=== PATIENT | male | born 1970 | race Caucasian/White ===

== ENCOUNTER 2021-06-30 17:07 | Emergency (ER) | payer BC, SELFPAY ==
[2021-06-30 17:20] VITALS: BP 131/86; PULSE 92; RESP 18; TEMP 36.4; O2SAT 98
--- NOTE | 2021-06-30 17:27 | ED_ITS ---
HPI - URI/Sore Throat General Chief Complaint: Upper Respiratory Infection Stated Complaint: Sore throat,Cough,Runny Nose Source: patient and RN notes reviewed History of Present Illness HPI Narrative: This is a 50-year-old male that presented to urgent care with c omplaints of a sore throat and cough. 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 The patient denies SOB, CP, palpitation, extremity numbness, lightheadedness, dizziness, constipation, diarrhea, chills, headache, loss of smell or taste or fever. Rapid Covid negative Strep negative Covid send out pending MD elicited complaint: cough and sore throat Related Data Allergies Allergy/AdvReac Type Severity Reaction Status Date / Time No Known Allergies Allergy Mild Verified 03/02/13 14:53 Review of Systems Review of Systems: A 14 organ system Review of Systems was performed and pertinent positives included in the HPI, otherwise remaining ROS is negative. Exam Narrative: GENERAL: This is a well-nourished, well-developed patient, in no apparent distress. HEAD: normocephalic, atraumatic. EYES: PERRL. Sclera clear/white. Vision is grossly intact. EARS: External ears normal, auditory canals clear and without drainage, TMs normal without perforation. Hearing grossly intact. NOSE: External nose normal with no obvious nasal discharge, nares without redness, no rhinorrhea. THROAT: Mucous membranes moist, posterior pharynx clear. NECK: Neck supple, non-tender without lymphadenopathy, masses or thyromegaly. CARDIOVASCULAR: Regular rate and rhythm without murmurs, gallops, or rubs. RESPIRATORY: Clear to auscultation. Breath sounds equal bilaterally. No wheezes, rales, or rhonchi. GASTROINTESTINAL: Abdomen soft, non-tender, nondistended. Bowel sounds are active. No hepato-splenomegaly, or palpable masses. No guarding. SKIN: warm, intact with no suspicious lesions or rash, good texture and turgor. NEURO: awake, alert, and oriented to person, place and time. There were no obvious focal neurologic abnormalities. Steady gait EXTREMITIES: Normal range of motion. No edema. No calf tenderness. Negative Homans sign bilaterally. BACK: Nontender without deformity or crepitance. No flank tenderness. Course Vital Signs Vital signs: Vital Signs Temperature 97.6 F 06/30/21 17:20 Pulse Rate 92 06/30/21 17:20 Respiratory Rate 18 06/30/21 17:20 Blood Pressure 131/86 06/30/21 17:20 Pulse Oximetry 98 06/30/21 17:20 Temperature 97.6 F 06/30/21 17:20 Pulse Rate 92 06/30/21 17:20 Respiratory Rate 18 06/30/21 17:20 Blood Pressure 131/86 06/30/21 17:20 Pulse Oximetry 98 06/30/21 17:20 Discharge Plan Discharge Patient Disposition: Home, Self-Care Condition: Stable Instructions: Antibiotic Form Follow-up/Referrals: Jorge Luis,Rajeev Rocha MD [Primary Care Provider] -
[2021-07-01 15:30] LABS: SARS-CoV-2 RNA PCR Negative
== END 2021-06-30 18:01 | disposition home or self-care (01) ==
PROVIDERS: Emergency Provider Nurse Practitioner; PCP Internal Medicine
DX: J00 Acute nasopharyngitis [common cold] (principal); Z20.822 Contact with and (suspected) exposure to COVID-19
CPT/HCPCS: 87081; 87880; 99213; C9803; G0463; U0003; U0005

== ENCOUNTER 2025-03-16 13:55 | Emergency (ER) | payer BC, SELFPAY ==
--- OUTSIDE RECORDS SUMMARY | 2025-03-16 13:58 | XMS_ITS | Encounter Summary ---
Author Organization [facility] Health Address [address] [place] [address] Care Team Providers Care Hockey Instructor Name Role Phone Ofe, Anibal BArsenio DO Unavailable [phone] Rajeev Kang MD Primary Care Provider [phone] Encounter Details Date Type Department Care Team (Late st Contact Info) Description 11/18/2022 Lab Requisition [facility] Care DermPath Lab [address] [facility] [place] [id number] Kasandra Hernandez MD [facility] [facility] [place] [address] Social History Tobacco Use Types Packs/Day Years Used Date Smoking Tobacco: Never Smokeless Tobacco: Never Alcohol Use Standard Drinks/Week Comments Yes 0 (1 standard drink = 0.6 oz pur e alcohol) OCCASSIONALLY 1 drinks a week Sex and Gender Information Value Date Recorded Sex Assigned at Not on file Legal Sex Male 5:42 AM GROUP HOME COUNSELOR Gender Identity Not on file Sexual Orientation Not on file documented as of this encounter Plan of Treatment Not on file documented as of this encounter Procedures Procedure Name Priority Date/Time Associated Diagnosis Comments DERMATOPATHOLOGY Routine 11/17/2022 12:0 0 AM GROUP HOME COUNSELOR documented in this encounter Results * DERMATOPATHOLOGY (11/17/2022 12:00 AM GROUP HOME COUNSELOR) Case Report Dermatopathology Report Case: [id number] Authorizing Provider: Kasandra Hernandez MD Collected: 11/17/2022 12:00 AM Ordering Location: [facility] DermPath Lab Received: 11/18/2022 04:42 PM Pathologist: Nadia Lyons MD Specimen: Skin, right superior lateral midback 4:28 PM [facility] DERMATOPATHOLOGY LABORATORY Final Diagnosis Specimen A. SKIN, right superior lateral midback: FOCAL RESIDUAL JUNCTIONAL MELANOCYTIC PROLIFERATION; NOT PRESENT AT MARGIN (D48.5) DERMAL SCAR (L90.5) 4:28 PM [facility] DERMATOPATHOLOGY LABORATORY Clinical History Dysplastic Nevus with Moderate Atypia 3 4:28 PM [facility] DERMATOPATHOLOGY LABORATORY Gross Description Specimen A: Received is one formalin filled container labeled with the patients name and designated right superior lateral midback. The specimen consists of a shave removal measuring [id number] mm. Jar 0. 4:28 PM [facility] DERMATOPATHOLOGY LABORATORY Microscopic Description Specimen A. SKIN, right superior lateral midback: Sections show focal residual junctional melanocytic proliferation. There is a lentiginous proliferation of melanocytes between irregular nests. The melanocytes are highlighted by MART-1/Melan-A.This lesion is not present at the margin of the specimen. There are fibroblasts and collagen bundles oriented parallel to the skin surface with elongated blood vessels, some of which are oriented perpendicular to the skin surface. 4:28 PM [facility] DERMATOPATHOLOGY LABORATORY Disclaimer An external and internal positive and negative controls are appropriate for the histochemical, immunohistochemical and immunofluorescence stain(s) in this case (if any), except where stated explicitly. The performance characteristics of the stain(s) cited in this report were developed and its performance characteristic determined by the Dermatopathology Laboratory at [facility], directed by Dr. Meka Fraser. These tests need not be, and therefore are not, approved by the [place] Food and Drug Administration. The tests are used for clinical purposes. Billing Codes Specimen Charges Stain Charges 53989 1 52447 1 4:28 PM [facility] DERMATOPATHOLOGY LABORATORY Embedded Images 4:28 PM GROUP HOME COUNSELOR DERMATOPATHOLOGY LABORATORY Pathology/Cytolog y TISSUE SPECIMEN FROM SKIN / Unknown 11/17/2022 11/18/2022 4:42 PM GROUP HOME COUNSELOR Kasandra Hernandez MD LAB - PATHOLOGY/CYTOLOGY ORDER MIRYAM Final Result DERMATOPATHOLOGY LABORATORY [facility] - Department of Dermatology [facility] [address] [place] [address], [address] [phone] documented in this encounter Visit Diagnoses Not on filedocumented in this encounter Care Teams Hockey Instructor Relationship Specialty Start Date End Date Rajeev Kang MD PCP - General Internal Medicine 06/15/13 Anibal Thakur DO Referring Physician Gastroenterology 06/15/13 documented as of this encounter
--- OUTSIDE RECORDS SUMMARY | 2025-03-16 13:58 | XMS_ITS | Continuity of Care Document ---
Author Organization [facility] Address [address] [place] [address] Phone Care Team Providers Care Lpn Private Duty Name Role Phone Emmanuel Mary MD Unavailable Unavailable Allergies, Adverse Reactions, Alerts Substance Reaction Status Criticality No Known Allergies Active No Inform ation Medications Medication Instructions Dosage Effective Dates (start - stop) Status Comments MESALAMINE DR TABS 800MG TAKE 2 TABLETS TWICE A DAY - Active AZATHIOPRINE TABS 50MG TAKE 4 TABLETS DAILY - Active RISEDRONATE SOD TABS 5MG TAKE 1 TABLET DAILY - Active Clenpiq 10 mg-3.5 gram-12 gram/175 mL oral solution first dose at 5 pm the evening prior second dose 6 hours before procedure - Active ACTONEL (unknown strength) take 1 tablet by oral route every week in the morning, at least 30 min before first food, beverage, or medication of day Not Available - Active loperamide 2 mg capsule one three times daily - Active vitamin B12 2,500 mcg-folic acid 400 mcg disintegrating tablet one sublingual daily - Active Fish Oil 1,200 mg (144 mg-216 mg) capsule one capsule daily - Active glipizide ER 5 mg tablet, extended release 24 hr take 1 tablet by oral route 2 times every day with breakfast 5 MG - Active Caltrate 600 plus D 600 mg (1,500 mg)-800 unit chewable tablet one tablet daily - Active Zyrtec 10 mg tablet take 1 tablet by oral route every day 10 MG - Active Multivitamin 50 Plus tablet one tablet daily - Active OneTouch Ultra Test strips use one strip three times daily - Active Farxiga 5 mg tablet take 1 tablet by oral route every day in the morning 5 MG - Active Procedures Procedure Date OFFICE [id number] BODY MASS INDEX DOCD SYST BP GE 130 - 139MM HG DIAST BP < 80 MM HG TISSUE EXAM BY PATHOLOGIST COLONOSCOPY, REMOVAL SNARE TECH 024 C-REACTIVE PROTEIN (CRP) CBC, INC PLATELETS AND DIFFERENTIAL COMPREHEN METABOLIC PANEL CMP ROUTINE VENIPUNCTURE OFFICE [id number] BODY MASS INDEX DOCD SYST BP LT 130 MM HG DIAST BP < 80 MM HG OFFICE [id number] BODY MASS INDEX DOCD SYST BP LT 130 MM HG DIAST BP < 80 MM HG OFFICE [id number] BODY MASS INDEX DOCD SYST BP >= 140 MM HG6 IT DIAST BP 80-89 MM HG OFFICE [id number] BODY MASS INDEX DOCD SYST BP LT 130 MM HG DIAST BP < 80 MM HG C-REACTIVE PROTEIN (CRP) CBC, INC PLATELETS AND DIFFERENTIAL COMPREHEN METABOLIC PANEL CMP ROUTINE VENIPUNCTURE Advance Directives Directive Yes / No Effective Date File Name No Information Encounters Encounter Description Practice Location Reason(s) For Visit Diagnoses Date Provider Providers Copied on Encounter OFFICE [id number] [employer], [address], [place], [place], [id number] , [place] tel:[phone] [facility] Crohn's disease (chief complaint) Crohn's disease of both small and large intestine without complicationOther osteoporosis without current pathological fracture 4 Bialecki Eldad. [address] [place] [address], [id number], [place]. tel:[phone] Referring Provider: Rajeev Kang, [address] [facility] [address], [place], [address]. tel:[phone] [facility], [address], [place], [place], [id number] , [place] tel: [phone] [facility] No Information 4 Karrie Mccormick. [address] [place] [address], [place], [place], [id number], [place]. tel:[phone] [employer], [address], [place], [place], [id number] , [place] tel: [phone] [facility] No Information 4 Laura Almazan. [address] [place] [address], [place], [place], [id number], [place]. tel:[phone] [employer], [address], [place], [place], [id number] , [place] tel: [phone] [facility] Crohn's disease of both small and large intestine without complication 4 Bialecki [place]. [address] [place] [address], [id number], [place]. tel:[phone] [employer], [address], [place], [place], [id number] , [place] tel: [phone] [facility] No Information 4 Bialecki [place]. [address] [place] [address], [id number], [place]. tel:[phone] Referring Provider: Rajeev Kang, [address] [facility] [address], [place], [address]. tel:[phone] [employer], [address], [place], [place], [id number] , [place] tel: [phone] [facility] No Information 4 Tyra Christinalyla. [address] [place] [address], [id number], [place]. tel:[phone] Referring Provider: Emmanuel Hernandez, [address] [place] [address], [address] . tel:[phone] OFFICE [id number]HBO[facility]WT [facility], [address], [place], [place], [id number] , [place] tel:[phone] [facility] Crohn's disease (chief complaint) Crohn's disease of both small and large intestine without complication 4 Daniel Ivanna. [address] [place] [address], [id number], [place]. tel:[phone] Referring Provider: Rajeev Kang, [facility] [address], [place], [address]. tel:[phone] OFFICE BNUHE-HCI-WB [facility], [address], [place], [place], [id number] , [place] tel:[phone] [facility] Crohn's disease (chief complaint) Crohn's disease of both small and large intestine without complication 3 Laura Almazan. [address] [place] [address], [id number], [place]. tel:[phone] Referring Provider: Rajeev Kang, [address], [place], [address]. tel:[phone] OFFICE [facility], [address], [place], [place], [id number] , [place] tel:[phone] [facility] Follow up crohn's (chief complaint) Crohn's disease of both small and large intestine without complicationOther osteoporosis without current pathological fracture 2 Ofe Barnett. [address] [place] [address], [id number], [place]. tel:[phone] Referring Provider: Rajeev Kang, [address] [facility] [address], [place], [address]. tel:[phone] [facility], [address], [place], [id number] , tel:[phone] [facility] No Information 1 Ofe Barnett. [address] [place] [address], [id number], . tel:[phone] OFFICE FWSLD-VYR-DA PANDED [employer], [address], [place], [id number] , tel:[phone] [facility] 6 month follow up (chief complaint) Crohn's disease of both small and large intestine without complicationOther osteoporosis without current pathological fracture 1 Ofe Barnett. [address] [place] [address], [id number], . tel:[phone] Referring Provider: Rajeev Kang, [facility] [address], [address]. tel:[phone] [employer], [address], [place], [place], [id number] , [phone] [facility] No Information 1 Ofe Barnett. [address] [place] [address], [id number], . tel:[phone] Family History Family Member Type Diagnosis Age At Onset No Information Payers Payer name Insurance type Covered democrat ID Authorangela adaljan(s) [facility] [id number] Social History Type Description Quantity Date Captured Comments Alcohol Use Details beer 2 beers occasionally Caffeine Use Details soda 24 oz per day Tobacco Use Status Current non-smoker Smoking Status Never smoker Sex Male Vital Signs Date / Time: Height Weight BMI Pulse Rate Blood Pressure Temperature Respiratory Rate Body Surface Area Head Circumference Head Circ. Percentile Wt./Miles. Percentile BMI percentile Pulse Ox Inhaled Ox 3:26 PM 74.00 in 90.265 kg (199.00 lbs) 25.5 5 kg/m eter (2) 66 /min 135/76 mm[Hg] 97.00 F 18 /min Chief Complaint And Reason For Visit From encounter dated '08/22/2024 15:30'. Crohn's disease (chief complaint) Reason For Referral Reason For Referral No Information History Of Present Illness Encounter Date Complaint History Of Prese nt Illness Comments: review ed chart, scope, pathology, medications, compliant since surg 2012. Feels well but admit to 2-3 loose stools a day which does not bother him, no flares. not want meds for that. labs done with PCP and reviewed on EPIC. answered questions Crohn's disease Comments: 53 yea r old male that presents for Crohn's disease. He is currently on azathioprine and mesalamine daily. He feels like his disease is well controlled. Hx of small bowel resection in ~2016. Last colonoscopy in 2016. Denies any blood in stool and melena, no abd pain. Crohn's disease Crohn's disease Pertinent negati ves include abdominal pain, bloating, blood in stool, change in appetite, fecal incontinence, flatulence, nausea, vomiting and weight loss. Follow up crohn's Stable feels w ell. No problems. 6 month follow up The symptoms a re reported as being mild. Routine visit Long Hx of Crohn's disease. No problems. Functional Status Date Functional Assessmen t No Information Instructions Date Instruction Additional Infor dharmesh Assure all vitamins levels up to date Related to Other osteoporosis without current pathological fracture Glad you continue to feel well- call for flares or problemsContinue Mesalamine as doing Advise to reduce Azathioprine to at most 150mg a day- after 3 month can cone down to 100mg a dayContinue watching labs with primary care doctor at least 2 X a year- call if told labs worseFollow up in 1 year Related to Crohn's disease of both small and large intestine without complication Handout We are checking bloo d tests today, the office will call with the results once they are availableWe are getting you scheduled for a colonoscopyContinue with your current medicationsFollow up in 6 months Related to Crohn's disease of both small and large intestine without complication Patient is doing wel l he states is primary care doctor changes diabetic medicines knowledge stools a good I have discussed the results of his previous labs I reviewed his previous records he will continue his current therapy follow-up in the office in one year Related to Crohn's disease of both small and large intestine without complication dexa scan at [facility] Relat ed to Other osteoporosis without current pathological fracture stable Can see in 1 year Related to Crohn's disease of both small and large intestine without complication stable see me in 6 months Relate d to Crohn's disease of both small and large intestine without complication Assessments Type Assessment Date assessment Crohn's disease of b oth small and large intestine without complication assessment Other osteoporosis without curre nt pathological fracture Mental Status Date Cognitive Assessment Orientation - [place] ed to time, place, person, situation. Patient Care Teams Name Effective Dates (start - stop) Status Members No Information
--- OUTSIDE RECORDS SUMMARY | 2025-03-16 13:58 | XMS_ITS | Clinical Summary ---
Author Organization [facility] [address] Address [address] [place] [address] Care Team Providers Care Product Safety Expert Name Role Phone Rajeev Kang MD Primary Care Provider [phone] Allergies No known active allergies Medications risedronate (ACTONEL) 5 mg tablet Take 5 mg by mouth daily before breakfast Active omega 8-igy-yop-fish oil 360-1,200 mg capsule,delayed release(DR/EC) Take 1,200 mg by mouth daily Active fxjmocxq-sza-iqz ic-vit K-lycop 400-20-300 mcg tablet Take 1 tablet by mouth daily Active mesalamine (ASACOL HD) 800 mg EC tablet Take 800 mg by mouth 2 (two) times a day Active cyanocobalamin (Vitamin B-12) 1,000 mcg tablet Take 2,000 mcg by mouth daily Active azaTHIOprine (IMURAN) 50 mg tablet TAKE 4 TABLETS BY MOUTH DAILY 0 Active fluticasone propionate (FLONASE) 50 mcg/actuation nasal spray Administer 2 sprays into each nostril daily 1 each 3 Active Additional Information Patient not taking.Reported on 03/22/2023 blood glucose diagnostic (Funtigo CorporationTouch Ultra Test) strip use one strip three times daily 1 Active calcium carbonate-vitami n D3 (Caltrate 600 plus D) 1,500 mg (600 mg elemental)-800 unit tablet,chewable Take 1 tablet by mouth daily 1 Active cetirizine (ZyrTEC) 10 mg tablet Take 1 tablet (10 mg total) by mouth daily 1 Active dapagliflozin propanediol (Farxiga) 5 mg tablet TAKE 1 TABLET DAILY VIA G-TUBE 90 tablet 3 4 Active azelastine (ASTELIN) 137 mcg (0.1 %) nasal spray Administer 1 spray into each nostril 2 (two) times a day Use in each nostril as directed 30 mL 5 Active benzonatate (TESSALON) 200 mg capsule Take 1 capsule (200 mg total) by mouth 3 (three) times a day as needed for cough 60 capsule 5 Active glipiZIDE (GLUCOTROL) 5 mg tabletIndication s:Type 2 diabetes mellitus without complication, without long-term current use of insulin (HCC) TAKE 1 TABLET TWICE A DAY BEFORE BREAKFAST AND LUNCH 180 tablet 3 5 Active Active Problems Problem Noted Date Diagnosed Date Upper respiratory tract infection 11/25/2022 Assessment & Plan (11/25/2022 3:56 PM BEVEL GEAR GENERATOR OPERATOR): Prednisone, nasal sprays and tessalon pearls Type 2 diabetes mellitus wit hout complication, without long-term current use of insulin 06/02/2021 Assessment & Plan (06/02/2021 9:07 AM CDT): A1C 5.8% today, does not check glucose No low's Current on eye exam Educated on sick day care Encounters Date Type Department Care Team Description 01/17/2025 7:45 AM CDT Telemedicine [facility] Virtual Care [address] [place] [phone] Damaris Mclaughlin MD Acute cough (Primary Dx); Symptoms of upper respiratory infection (URI) 01/17/2025 Patient Self-Triage [facility] [address] [place] [address] Mychart, Generic Provider 01/07/2025 3:30 PM CDT Office Visit [facility] [address] [place] [address] [address] [facility] [place] [address] Rajeev Kang MD Type 2 diabetes mellitus without complication, without long-term current use of insulin (HCC) (Primary Dx) from Last 3 Months Immunizations Immunization Administration Dates Next Due Influenza, Quadrivalent, Spl it, Intramuscular 07/26/2018 Influenza, Quadrivalent, Spl it, Preservative Free, Intramuscular 07/27/2023,07/28/2022,07/23/2021 Influenza, Trivalent, Cell C ulture-based MDCK, Preservative Free, Antibiotic Free, Intramuscular 07/26/2024 Odilo SARS-CoV-2 Monovalent Vaccination (12+ Yrs) PURPLE 01/17/2021,12/27/2020 Pneumococcal Conjugate Pcv20 07/26/2024 Pneumococcal Polysaccharide PPV23 06/27/2013 Surgical History Surgery Date Site/Laterality Comments COLON SURGERY Medical History Medical History Date Comments Diabetes mellitus (HCC) Osteoporosis Family History Medical History Relation Name Comments Cancer Father Breast cancer Mother Stroke Mother Relation Name Status Comments Father Mother Social History Tobacco Use Types Packs/Day Years Used Date Smoking Tobacco: Never Tobacco Cessation:Counseling Given: Not Answered Alcohol Use Standard Drinks/Week Comments Yes 0 (1 standard drink = 0.6 oz pur e alcohol) Sex and Gender Information Value Date Recorded Sex Assigned at Not on file Legal Sex Male 4:42 AM BEVEL GEAR GENERATOR OPERATOR Gender Identity Not on file Sexual Orientation Not on file Obstetrics History Last Filed Vital Signs Vital Sign Reading Time Taken Comments Blood Pressure 144/80 01/07/2025 3:24 PM CDT Pulse 69 01/07/2025 3:24 PM CDT Temperature 36.9 C (98.5 F) 11/25/2022 3:20 PM BEVEL GEAR GENERATOR OPERATOR Respiratory Rate - - Oxygen Saturation 98% 11/25/2022 3:20 PM BEVEL GEAR GENERATOR OPERATOR Inhaled Oxygen Concentration - - Weight 92.1 kg (203 lb) 01/07/2025 3:24 PM CDT Height 188 cm (6' 2 ) 01/07/2025 3:24 PM CDT Body Mass Index 26.06 01/07/2025 3:24 PM CDT Plan of Treatment Health Maintenance Due Date Last Done Comments Depression Screening 1970 Hepatitis C Screening 1969 Dilated Eye Exam 1969 Foot Exam 1969 DTaP/Tdap/Td Vaccine (1 - Tdap) 1980 Hepatitis B Screening 1987 Zoster Vaccine (1 of 2) 1988 Regular Well Visit/Exam 18-64 12/01/2022 12/01/2021, 12/01/2020 Albumin Creatinine Ratio, Urine 06/29/2024 3 Covid-19 Vaccine (4 2023-2 5 season) 2024 09/02/2021, 01/17/2021, 12/27/2020 Hemoglobin A1C 07/10/2025 01/07/2025, 07/01, 01/02/2024, Additional history exists Lipid Panel 07/10/2025 07/10/2024, 03/01, 12/01/2021, Additional history exists eGFR 07/10/2025 07/10/2024, 06/02, 12/01/2021, Additional history exists Prostate Cancer Screening-PSA 07/10/2026, 06/29/2023, 12/01/2021, Additional history exists Colon Cancer Screening-Colonoscopy 12/01/20272017 Influenza Vaccine Completed 07/26/2024, , 07/28/2022, Additional history exists Pneumococcal vaccine <65 Completed 07/26/2024, 06/01 Procedures Procedure Name Priority Date/Time Associated Diagnosis Comments POCT HEMOGLOBIN A1C Routine 01/07/2025 3 :26 PM CDT Type 2 diabetes mellitus without complication, without long-term current use of insulin (HCC) EGFR Routine 07/10/2024 4:59 PM CDT Type 2 diabetes mellitus without complication, without long-term current use of insulin (HCC) Encounter for lipid screening for cardiovascular disease Screening for prostate cancer PSA SCREEN Routine 07/10/2024 4:59 PM CDT Type 2 diabetes mellitus without complication, without long-term current use of insulin (HCC) Encounter for lipid screening for cardiovascular disease Screening for prostate cancer POCT LIPID PANEL Routine 07/10/2024 4:05 PM CDT Encounter for lipid screening for cardiovascular disease ALBUMIN CREATININE RATIO, URINE Routine 06/29/2023 4:13 PM CDT Type 2 diabetes mellitus without complication, without long-term current use of insulin (HCC) COLONOSCOPY Routine 12/01/2017 from Last 3 Months or Most Recently Relevant to Health Maintenance Results * (ABNORMAL) POCT hemoglobin A1c (01/07/2025 3:26 PM CDT) Hemoglobin A1C, POC 6.1 4.0 - 5.6 % Blood 01/07/2025 3:26 PM CDT us Rajeev Kang MD POINT OF CARE TEST ORDERABLES Final Result * eGFR (07/10/2024 4:59 PM CDT) eGFR 87 >=60 mL/min/1. 73 m2 Comment: Interpretive Data Reference Interval Normal >/= 90 mL/min/1.73m2 Mildly decreased* 60 - 89 mL/min/1.73m2 Mildly to moderately decreased 45 - 59 mL/min/1.73m2 Moderately to severely decreased 30 - 44 mL/min/1.73m2 Severely decreased 15 - 29 mL/min/1.73m2 Kidney Failure < 15 mL/min/1.73m2 *Relative to young adult level Estimated glomerular filtration rate is determined by the 2020 CKD-EPI equation recommended by the National Kidney Foundation (A Unifying Approach to GFR Estimation: Recommendations of the NKF-ASK Task Force on Reassessing the Inclusion of Race in Diagnosing Kidney Disease, JASN 2020). The CKD-EPI equation should not be used for patients with unstable renal function and has not been validated in children and those over 70. Current interpretive data was last reviewed 2021. Blood 07/10/2024 4:59 PM CDT 07/10/2024 6:52 PM CDT us Rajeev Kang MD LAB BLOOD ORDERABLES Final Re sult [facility] [place] [address] * PSA screen (07/10/2024 4:59 PM CDT) PSA-Total 0.56 <=3.90 ng/mL Comment: Interpretive Data AGE SEX REFERENCE INTERVAL 0 minutes-150 years Female None 0 minutes-49 years Male None 50-59 years Male 0-3.90 60-69 years Male 0-5.40 70-79 years Male 0-6.20 80-150 years Male 0-6.20 The Margot PSA Total assay procedure was used. Results from different manufacturers or methods may not be comparable. Serial testing should be performed using the same method. Current interpretive data last revised 22. Blood 07/10/2024 4:59 PM CDT 07/10/2024 6:37 PM CDT us Rajeev Kang MD LAB BLOOD ORDERABLES Final Re sult [facility] [place] [address] * POCT lipid panel (07/10/2024 4:05 PM CDT) Pathologist [facility] Cholesterol, POC 173 mg/dL HDL, POC 46 mg/dL Triglycerides, POC 449 mg/dL Chol/HDL Ratio, POC 3.8 Non-HDL Cholesterol, POC 127 mg/dL Cholesterol Total, POC 173 mg/dL Capillary blood 07/10/2024 4 :05 PM CDT us Rajeev Kang MD POINT OF CARE TEST ORDERABLES Final Result * Albumin Creatinine Ratio, Urine (06/29/2023 4:13 PM CDT) Creatinine ur 140.0 Not Estab. mg/dL [facility] - 01 Microalbumin, ur 4.7 Not Estab. ug/mL [facility] - 01 Microalbumin/cre at ratio 3 0 - 29 mg/g creat [facility] - 01 Comment: Normal: 0 - 29 Moderately increased: 30 - 300 Severely increased: >300 Urine 06/29/2023 4:13 PM CDT 06/29/2023 Narrative [facility] - 06/30/2023 10:11 AM CDT Performed at: - [facility] [id number] Program Counselor: Nasir Pedersen PhD, Phone: [phone] us Rajeev Kang MD LAB URINE ORDERABLES Final Re sult [facility] - 01 * Colonoscopy (12/01/2017) Anatomical Region Laterality Modality Other Narrative 12/01/2017 Pt reports he has with dr saji lopez in 1 year Historical Provider ENDOSCOPY PROCEDURES Yesenia l Result from Last 3 Months or Most Recently Relevant to Health Maintenance Insurance [place] [place] [place] BL[place] Care Teams Product Safety Expert Relationship Specialty Start Date End Date Rajeev Knag MD PCP - General Internal Medicine 11/11/20
--- OUTSIDE RECORDS SUMMARY | 2025-03-16 13:58 | XMS_ITS | Referral Summary ---
Author Organization [facility] [address] Address [address] [place] [address] Care Team Providers Care Uptwister Tender Name Role Phone Rajeev Kang MD Primary Care Provider [phone] Encounters Date Type Department Care Team Description 01/17/2025 7:45 AM CDT Telemedicine [facility] Virtual Care [address] [place] [phone] Damaris Mclaughlin MD Acute cough (Primary Dx); Symptoms of upper respiratory infection (URI) 01/17/2025 Patient Self-Triage [facility] [address] [place] [address] Mychart, Generic Provider 01/07/2025 3:30 PM CDT Office Visit [facility] [address] [facility] [address] [facility] [place] [address] Rajeev Kang MD Type 2 diabetes mellitus without complication, without long-term current use of insulin (HCC) (Primary Dx) from Last 3 Months Allergies No known active allergies Medications risedronate (ACTONEL) 5 mg tablet Take 5 mg by mouth daily before breakfast Active omega 7-iwn-dzr-fish oil 360-1,200 mg capsule,delayed release(DR/EC) Take 1,200 mg by mouth daily Active zgiioaim-cas-rbq ic-vit K-lycop 400-20-300 mcg tablet Take 1 [...] not taking.Reported on 03/22/2023 blood glucose diagnostic (T[employer]uch Ultra Test) strip use one strip three [...] 11/25/2022 Assessment & Plan (11/25/2022 3:56 PM SENIOR RESERVATIONS AGENT): Prednisone, nasal sprays and tessalon pearls Type 2 diabetes mellitus wit hout complication, without long-term current use of insulin 06/02/2021 Assessment & Plan (06/02/2021 9:07 AM CDT): A1C 5.8% today, does not check glucose No low's Current on eye exam Educated on sick day care Immunizations Immunization Administration Dates Next Due Influenza, Quadrivalent, Spl it, Intramuscular 07/26/2018 Influenza, Quadrivalent, Spl it, Preservative Free, Intramuscular 07/27/2023,07/28/2022,07/23/2021 Influenza, Trivalent, Cell C ulture-based MDCK, Preservative Free, Antibiotic Free, Intramuscular 07/26/2024 Pfizer SARS-CoV-2 Monovalent Vaccination (12+ Yrs) PURPLE 01/17/2021,12/27/2020 Pneumococcal Conjugate Pcv20 07/26/2024 Pneumococcal Polysaccharide PPV23 06/27/2013 Social History Tobacco Use Types Packs/Day Years Used Date Smoking Tobacco: Never Tobacco Cessation:Counseling Given: Not Answered Alcohol Use Standard Drinks/Week Comments Yes 0 (1 standard drink = 0.6 oz pur e alcohol) Sex and Gender Information Value Date Recorded Sex Assigned at Not on file Legal Sex Male 4:42 AM SENIOR RESERVATIONS AGENT Gender Identity Not on file Sexual Orientation Not on file Last Filed Vital Signs Vital Sign Reading Time Taken Comments Blood Pressure 144/80 01/07/2025 3:24 PM CDT Pulse 69 01/07/2025 3:24 PM CDT Temperature 36.9 C (98.5 F) 11/25/2022 3:20 PM SENIOR RESERVATIONS AGENT Respiratory Rate - - Oxygen Saturation 98% 11/25/2022 3:20 PM SENIOR RESERVATIONS AGENT Inhaled Oxygen Concentration - - Weight 92.1 kg (203 lb) 01/07/2025 3:24 PM CDT Height 188 cm (6' 2 ) 01/07/2025 3:24 PM CDT Body Mass Index 26.06 01/07/2025 3:24 PM CDT Plan of Treatment Not on file Procedures Procedure Name Priority Date/Time Associated Diagnosis [...] POCT hemoglobin A1c (01/07/2025 3:26 PM CDT) Pathologist [facility] Hemoglobin A1C, POC 6.1 4.0 - 5.6 % Blood 01/07/2025 3:26 PM CDT us Rajeev Kang MD POINT OF CARE TEST ORDERABLES Final Result * eGFR (07/10/2024 4:59 PM CDT) Pathologist [facility] eGFR 87 >=60 mL/min/1. 73 m2 Comment: [...] of Race in Diagnosing Kidney Disease, JASN 202). The CKD-EPI equation should not be used for patients with unstable renal function and has not been validated in children and those over 70. Current interpretive data was last reviewed 2021. Blood 07/10/2024 4:59 PM CDT 07/10/2024 6:52 PM CDT us Rajeev Kang MD LAB BLOOD ORDERABLES Final Re sult Performing Organization Address [facility] de Phone Number [facility] [employer] [place] [address] * PSA screen (07/10/2024 4:59 PM CDT) [...] MD LAB BLOOD ORDERABLES Final Re sult Performing Organization Address [facility] Co de Phone Number [id number] [employer] [place] [address] * POCT lipid panel (07/10/2024 4:05 PM CDT) Cholesterol, POC 173 mg/dL HDL, POC 46 [...] - 06/30/2023 10:11 AM CDT Performed at: [address] [id number] Rounder And Backer: Nasir Pedersen PhD, Phone: [phone] Rajeev Kang MD LAB URINE ORDERABLES Final Re sult [facility] - 01 * Colonoscopy (12/01/2017) Anatomical Region Laterality Modality Other Narrative 12/01/2017 Pt reports he has with dr saji lopez in 1 year Historical Provider ENDOSCOPY PROCEDURES Yesenia l Result from Last 3 Months or Most Recently Relevant to Health Maintenance Insurance [facility] [place]UE [place] Care Teams Uptwister Tender Relationship Specialty Start Date End Date Rajeev Kang MD PCP - General Internal Medicine 11/11/20
--- OUTSIDE RECORDS SUMMARY | 2025-03-16 13:58 | XMS_ITS | Encounter Summary ---
Author Organization [facility] Health Address [address] [place] [address] Care Team Providers Care Safety Intern Name Role Phone Anibal Thakur DO Unavailable [phone] Rajeev Kang MD Primary Care Provider [phone] Encounter Details Date Type Department Care Team (Late st Contact Info) Description 07/19/2013 [facility] Visit [facility]TERNAL [facility] DEPT Fabián Oneill MD [address] [phone] Social History Tobacco Use Types Packs/Day Years Used Date Smoking Tobacco: Never Smokeless Tobacco: Never Alcohol Use Standard Drinks/Week Comments Yes 0 (1 standard drink = 0.6 oz pur e alcohol) OCCASSIONALLY 1 drinks a week Sex and Gender Information Value Date Recorded Sex Assigned at Not on file Legal Sex Male 5:42 AM DIRECTOR OF EXHIBIT DEVELOPMENT Gender Identity Not on file Sexual Orientation Not on file documented as of this encounter Plan of Treatment Not on file documented as of this encounter Visit Diagnoses Not on filedocumented in this encounter Care Teams Safety Intern Relationship Specialty Start Date End Date Rajeev aKng MD PCP - General Internal Medicine 06/15/13 Anibal Thakur DO Referring Physician Gastroenterology 06/15/13 documented as of this encounter
--- OUTSIDE RECORDS SUMMARY | 2025-03-16 13:58 | XMS_ITS | Clinical Summary ---
Author Organization [facility] Address [address] [place] [address] Care Team Providers Care Linux Network Administrator Name Role Phone Anibal Thakur DO Unavailable [phone] Rajeev Kang MD Primary Care Provider [phone] Source Comments [facility],non-owned Affiliates and Associated Physician Practices is amultiple site organization consisting of ambulatory clinics and hospital sitesin [place], [place], [place] and [place]. This disclosure is being madepursuant to the Care Everywhere program and may not contain all information available regarding this patient. Last updated 18.[facility] [place] [facility] Allergies No known active allergies Medications * Be aware that medications may not be up to date on this document. Alwaysverify current medications with the patient. [place]-3 Fatty Acids (FISH OIL) 1200 MG CAPS Take 1,200 mg by mouth once daily. Active Azathioprine (AZASAN) 75 MG TABS Take 200 mg by mouth once daily. Active predniSONE (DELTASONE) 5 MG tablet Take 35 mg by mouth once daily. Active vitamin B-12 (CYANOCOBALAMIN) 1000 MCG tablet Take 2,000 mcg by mouth once daily. Active Multiple Vitamin (ONE-A-DAY MENS) TABS Take 1 Tab by mouth once daily. Active risedronate (ACTONEL) 5 MG tablet Take 5 mg by mouth daily before breakfast. Active Lancet Devices (AUTO-LANCET) MISC Use 1 Units twice daily on empty stomach. 2 Active mesalamine HD EC (ASACOL HD) 800 MG tablet Take 800 mg by mouth 3 times daily. Active hydrocodone-acetami nophen (NORCO) 5-325 MG tablet Take 1-2 Tabs by mouth every 4 hours as needed. 60 Tab 0 3 Active senna (SENOKOT) 8.6 MG tablet Take 1 Tab by mouth 2 times daily. 60 Tab 1 3 Active iron polysaccharides (NIFEREX 150) 150 MG capsule Take 1 Cap by mouth 2 times daily. 60 Cap 1 3 Active glipiZIDE (GLUCOTROL) 5 MG tablet Take 5 mg by mouth 2 times daily,before breakfast and supper. Active Active Problems Problem Noted Date Diagnosed Date Crohn's disease 06/27/2013 Immunizations Immunization Administration Dates Next Due PNEUMOCOCCAL PPSV23 06/27/2013 Family History Medical History Relation Name Comments Breast Cancer after age 50 or unknown Mother Cancer - Ovarian Mother Cancer Paternal Grandmother Relation Name Status Comments Brother Alive Father Alive Mother Alive Paternal Grandmother Sister Alive Social History Tobacco Use Types Packs/Day Years Used Date Smoking Tobacco: Never Smokeless Tobacco: Never Alcohol Use Standard Drinks/Week Comments Yes 0 (1 standard drink = 0.6 oz pur e alcohol) OCCASSIONALLY 1 drinks a week Sex and Gender Information Value Date Recorded Sex Assigned at Not on file Legal Sex Male 5:42 AM RADIATION ONCOLOGIST Gender Identity Not on file Sexual Orientation Not on file Last Filed Vital Signs Vital Sign Reading Time Taken Comments Blood Pressure 108/68 07/03/2013 7:24 AM CDT Pulse 97 07/03/2013 7:24 AM CDT Temperature 37.6 C (99.6 F) 07/03/2013 7:24 AM CDT Respiratory Rate 18 07/03/2013 7:24 AM CDT Oxygen Saturation 96% 07/03/2013 7:24 AM CDT Inhaled Oxygen Concentration - - Weight 88 kg (194 lb) 08/17/2013 9:55 AM CDT Height 188 cm (6' 2 ) 08/17/2013 9:55 AM CDT Body Mass Index 24.91 08/17/2013 9:55 AM CDT Plan of Treatment Health Maintenance Due Date Last Done Comments NIK (AGES 45-75) - COL ON CA SCREENING 1969 CT COLONOGRAPHY - COLON CA SCREENING 1969 FIT - COLON CA SCREENING 1969 FLEX SIG - COLON CA SCREENING 1969 LIPID TESTING 1969 COVID-19 VACCINE (#1) 1974 HIV SCREENING 1984 HEPATITIS C SCREENING 09/19/1987 DTAP/TDAP/TD VACCINES (1 - Tdap) 1988 HEPATITIS B VACCINE (1 of 3 - 19+ 3-dose series) 1988 ZOSTER VACCINE (1 of 2) 1988 PNEUMOCOCCAL VACCINE 50+ (2 of 2 - PCV) 06/27/2014 06/27/2013 COLON MONITORING 05/28/2023 05/28/2013 COLONOSCOPY - COLON CA SCREENING 05/28/2023 05/28/20 13 Colorectal Cancer Screening 05/28/2023 DEPRESSION SCREENING 10/31/2024 INFLUENZA VACCINE (Season Ended) 2025 HIB VACCINE Aged Out No longer eligi ble based on patient's age to complete this topic HPV VACCINE Aged Out No longer eligi ble based on patient's age to complete this topic MENINGOCOCCAL (Group B) VACC INE SHARED DECISION-MAKING Aged Out No longer eligibl e based on patient's age to complete this topic MENINGOCOCCAL GROUPS A/C/Y/W VACCINE Aged Out No longer eligible b ased on patient's age to complete this topic Procedures Procedure Name Priority Date/Time Associated Diagnosis Comments ENDOSCOPY, COLON, SCREENING Routine 05/28/2013 from Last 3 Months or Most Recently Relevant to Health Maintenance Results * ENDOSCOPY, COLON, SCREENING (05/28/2013) Fabián Oneill MD GI PROCEDURE ORDERABLES Final Result from Last 3 Months or Most Recently Relevant to Health Maintenance Insurance [employer] Advance Directives * FULL RESUSCITATION (Latest Code Status on File) Date Activated Date Inactivated Comments 06/26/2013 9:25 PM 07/03/2013 12:51 PM * FULL RESUSCITATION Date Activated Date Inactivated Comments 04/06/2012 11:53 PM 04/08/2012 1:19 AM Care Teams Linux Network Administrator Relationship Specialty Start Date End Date Rajeev Kang MD PCP - General Internal Medicine 06/15/13 Anibal Thakur DO Referring Physician Gastroenterology 06/15/13
--- OUTSIDE RECORDS SUMMARY | 2025-03-16 13:58 | XMS_ITS | Encounter Summary ---
Author Organization [facility] Health Address [address] [place] [address] Care Team Providers Care Jewel Inspector Name Role Phone Anibal Thakur DO Unavailable [phone] Rajeev Kang MD Primary Care Provider [phone] Encounter Details Date Type Department Care Team (Late st Contact Info) Description 06/15/2013 [facility] Fabián Oneill MD [address] [phone] Social History Tobacco Use Types Packs/Day Years Used Date Smoking Tobacco: Never Alcohol Use Standard Drinks/Week Comments Yes 0 (1 standard drink = 0.6 oz pur e alcohol) OCCASSIONALLY 1 drinks a week Sex and Gender Information Value Date Recorded Sex Assigned at Not on file Legal Sex Male 5:42 AM STAFF SERVICES MANAGER Gender Identity Not on file Sexual Orientation Not on file documented as of this encounter Plan of Treatment Not on file documented as of this encounter Visit Diagnoses Not on filedocumented in this encounter Care Teams Jewel Inspector Relationship Specialty Start Date End Date Rajeev Kang MD PCP - General Internal Medicine 06/15/13 Anibal Thakur, Referring Physician Gastroenterology 06/15/13 documented as of this encounter
--- OUTSIDE RECORDS SUMMARY | 2025-03-16 14:00 | XMS_ITS | Continuity of Care Document ---
Author Organization [email or web address] [facility] Address [address] [place] [address] Phone Care Team Providers Care Lithographers Printer Name Role Phone Emmanuel Mary MD Unavailable [...] MG - Active Procedures Procedure Date OFFICE [id number] BODY MASS INDEX DOCD SYST BP GE 130 - 139MM HG DIAST BP < 80 MM HG TISSUE EXAM BY PATHOLOGIST COLONOSCOPY, REMOVAL SNARE TECH 024 C-REACTIVE PROTEIN (CRP) CBC, INC PLATELETS AND DIFFERENTIAL COMPREHEN METABOLIC PANEL CMP ROUTINE VENIPUNCTURE OFFICE [id number] BODY MASS INDEX DOCD SYST BP LT 130 MM HG DIAST BP < 80 MM HG OFFICE [id number] BODY MASS INDEX DOCD SYST BP LT 130 MM HG DIAST BP < 80 MM HG OFFICE [id number] BODY MASS INDEX DOCD SYST BP >= 140 MM HG6 IT DIAST BP 80-89 MM HG OFFICE [id number] BODY MASS INDEX DOCD SYST BP LT 130 MM HG DIAST BP < 80 MM HG C-REACTIVE PROTEIN (CRP) CBC, INC PLATELETS AND DIFFERENTIAL COMPREHEN METABOLIC PANEL CMP ROUTINE VENIPUNCTURE Advance Directives Directive Yes / No Effective Date File Name No Information Encounters Encounter Description Practice Location Reason(s) For Visit Diagnoses Date Provider Providers Copied on Encounter OFFICE [id number] [place], [address], [place], [place], [id number] , [place] tel:[phone] [facility] Crohn's disease (chief complaint) Crohn's disease of both small and large intestine without complicationOther osteoporosis without current pathological fracture 4 Bialecki [place]. [address] [place] [address], [id number], [place]. tel:[phone] Referring Provider: Rajeev Kang, [address] [facility] [address], [place], [address]. tel:[phone] [email or web address] [facility] [address] [place], [address], [place], [place], [id number] , [place] tel: [phone] [facility] No Information 4 Karrie Mccormick. [address] [place] [address], [place], [place], [id number], [place]. tel:[phone] [facility], [address], [place], [place], [id number] , [place] tel: [phone] [facility] No Information 4 Laura Almazan. [address] [place] [address], [place], [place], [id number], [place]. tel:[phone] [facility], [address], [place], [place], [id number] , [place] tel: [phone] [facility] Crohn's disease of both small and large intestine without complication 4 Bialecki [place]. [address] [place] [address], [id number], [place]. tel:[phone] [facility], [address], [place], [place], [address] , [place] tel: [phone] [facility] No Information 4 Biale[place]. [address] [place] [address], [id number], [place]. tel:[phone] Referring Provider: Rajeev Kang, [address] [facility] [address], [place], [address]. tel:[phone] [facility], [address], [place], [place], [id number] , [place] tel: [phone] [facility] No Information 4 Tyra Christinalyla. [address] [place] [address], [id number], [place]. tel:[phone] Referring Provider: Emmanuel Hernandez, [address] [place] [address], [address] . tel:[phone] OFFICE [email or web address], [address], [place], [place], [id number] , [place] tel:[phone] [facility] Crohn's disease (chief complaint) Crohn's disease of both small and large intestine without complication 4 Daniel Ivanna. [address] [address], [id number], [place]. tel:[phone] Referring Provider: Rajeev Kang, [facility], [place], [address]. tel:[phone] OFFICE [id number], [address], [place], [place], [id number] , [place] tel:[phone] [facility] Crohn's disease (chief complaint) Crohn's disease of both small and large intestine without complication 3 Laura Almazan. [address] [place] [address], [id number], [place]. tel:[phone] Referring Provider: Rajeev Kang, [address], [place], [address]. tel:[phone] OFFICE [facility], [address], [place], [place], [id number] , [place] tel:[phone] [facility] Follow up crohn's (chief complaint) Crohn's disease of both small and large intestine without complicationOther osteoporosis without current pathological fracture 2 Ofe Barnett. [address] [place] [address], [id number], [place]. tel:[phone] Referring Provider: Rajeev Kang, [address] [facility] [address], [place], [address]. tel:[phone] [email or web address], [address], [place], [id number] , tel:[phone] [facility] No Information 1 Ofe Barnett. [address] [place] [address], [id number], . tel:[phone] OFFICE PYRMO[facility]XQ PANDED [facility], [address], [place], [id number] , tel:[phone] [facility] 6 month follow up (chief complaint) Crohn's disease of both small and large intestine without complicationOther osteoporosis without current pathological fracture 1 Ofe Barnett. [address] [place] [address], [id number], . tel:[phone] Referring Provider: Rajeev Kang, [facility], [address]. tel:[phone] [facility], [address], [place], [place], [id number] , [phone] [facility] No Information 1 Ofe Barnett. [address] [place] [address], [id number], . tel:[phone] Family History Family Member Type Diagnosis Age At Onset No Information Payers Payer name Insurance type Covered republican ID Authorangela adaljan(s) [facility] ACCESS [id number] Social History Type Description Quantity Date Captured [...] large intestine without complication dexa scan at [facility] Relat ed to Other osteoporosis without current [...] Mental Status Date Cognitive Assessment Orientation - Buchtel ed to time, place, person, situation. Patient Care Teams Name Effective Dates (start - stop) Status Members No Information
--- NOTE | 2025-03-16 14:31 | ED_ITS ---
HPI - General Adult General Chief complaint: Ear Stated complaint: Ear ache R Time Seen by Provider: 03/16/25 14:31 Source: patient Mode of arrival: ambulatory Limitations: no limitations History of Present Illness HPI narrative: 54-year-old male patient presents to [facility] with complaints of right ear pain for the last 3 days. Denies fevers body aches or chills. Patient states he tried taking some vtqn-tlg-jhlojth earwax removal and tried this yesterday but states he did really cm difference in pain. Patient denies any dizziness or lightheadedness. Patient states he does take Zyrtec daily. Related Data Home Medications Medication Instructions Recorded Confirmed Last Taken Type azathioprine 50 mg tablet 200 mg PO DAILY 06/30/21 03/16/25 Unknown History cetirizine 10 mg tablet (Zyrtec) 10 mg PO DAILY 06/30/21 03/16/25 Unknown History cyanocobalamin (vitamin B-12) 2,500 mcg sublingual DAILY 06/30/21 03/16/25 Unknown History 2,500 mcg sublingual tablet (Vitamin B-12) glipizide 5 mg tablet 5 mg PO BID 06/30/21 03/16/25 Unknown History mesalamine 800 mg tablet,delayed 800 mg PO BID 06/30/21 03/16/25 Unknown History release omega-3 fatty acids 1,500 mg PO DAILY 06/30/21 03/16/25 Unknown History risedronate 5 mg tablet 5 mg PO DAILY 06/30/21 03/16/25 Unknown History dapagliflozin propanediol 5 mg mg 03/16/25 Unknown History tablet (Farxiga) Allergies Allergy/AdvReac Type Severity Reaction Status Date / Time No Known Allergies Allergy Mild Verified 03/16/25 14:42 Review of Systems Review of Systems: CONSTITUTIONAL: Denies fever, chills, or sweats. EYES: Denies visual changes, redness, or discharge. ENT: Denies rhinorrhea, congestion, sore throat, Positive right otalgia. CARDIOVASCULAR: Denies chest pain, palpitations, or edema. RESPIRATORY: Denies cough or dyspnea. GASTROINTESTINAL: Denies abdominal pain, nausea, vomiting, or diarrhea. GENITOURINARY: Denies dysuria or hematuria. SKIN: Denies rash or itching. MUSCULOSKELETAL: Denies back pain, joint pain, or myalgia. NEUROLOGIC: Denies headache, numbness, or weakness. PSYCHIATRIC: Denies anxiety or depression. [facility] Past Medical History Medical History (Updated 03/16/25 @ 15:33 by YEIMI Calvillo) Diabetes Crohn's disease Comments At the time of my signature I agree with nursing past medical history, surgical, social, and family history. There is no relevant family history pertinent to the presenting complaint. Exam Narrative: GENERAL: Well-appearing, well-nourished, and in no acute distress. HEAD: Normocephalic, atraumatic. EYES: PERRLA and EOMI. ENT: Nares clear, no rhinorrhea or epistaxis. Mucous membranes moist. posterior pharynx with no erythema, tonsillar enlargement, exudates or lesions present. Patient left ear is clear no erythema or foreign bodies the canal. The right ear does have slight erythema and appears to have some fluid and bulging behind the eardrum. No foreign bodies the canal. NECK: Supple. No lymphadenopathy CHEST: Clear to auscultation. No respiratory distress. HEART: Regular rate and rhythm. No murmur heard. Normal peripheral pulses. ABDOMEN: Soft, nontender, nondistended, normal active bowel sounds. EXTREMITIES: Normal range of motion. No edema. SKIN: Warm, dry, no rash. NEURO: No focal deficits. Alert and oriented x3. Course Course Level of Care: Express Care Visit Vital Signs Vital signs: Vital Signs Temperature 36.2 C L 03/16/25 14:42 Pulse Rate 74 03/16/25 14:42 Respiratory Rate 18 03/16/25 14:42 Blood Pressure 132/75 03/16/25 14:42 Pulse Oximetry 99 03/16/25 14:42 Oxygen Delivery Room Air 03/16/25 14:42 Temperature 36.2 C L 03/16/25 14:42 Pulse Rate 74 03/16/25 14:42 Respiratory Rate 18 03/16/25 14:42 Blood Pressure 132/75 03/16/25 14:42 Pulse Oximetry 99 03/16/25 14:42 Oxygen Delivery Room Air 03/16/25 14:42 Vital signs reviewed. Medical Decision Making MDM Narrative Medical decision making narrative: Discussed with patient we will discharge him home with some oral antibiotics for ear infection with effusion. Discussed with patient continue taking his antihistamines and may also use Flonase to help with symptoms. Patient verbalized understanding denies any other questions or concerns at this time. Differential Diagnosis Differential Diagnosis: Differential diagnosis: Otitis media, otitis externa, perforated TM, i nfection of the outer ear, foreign body or cerumen impaction, ruptured TM, acute mastoiditis, ligament otitis externa, dehydration, pneumonia, sepsis, dental or intraoral infection, TMJ dysfunction Vital Signs Vital Signs: Vital Signs Temperature 36.2 C L 03/16/25 14:42 Pulse Rate 74 03/16/25 14:42 Respiratory Rate 18 03/16/25 14:42 Blood Pressure 132/75 03/16/25 14:42 Pulse Oximetry 99 03/16/25 14:42 Oxygen Delivery Room Air 03/16/25 14:42 Temperature 36.2 C L 03/16/25 14:42 Pulse Rate 74 03/16/25 14:42 Respiratory Rate 18 03/16/25 14:42 Blood Pressure 132/75 03/16/25 14:42 Pulse Oximetry 99 03/16/25 14:42 Oxygen Delivery Room Air 03/16/25 14:42 Critical Care Time Critical Care Time Critical Care Time: No Discharge Plan Discharge Clinical Impression: Acute otitis media with effusion of right ear Patient Disposition: Home Condition: Stable Instructions: Antibiotic Form, Ear Infection (ED) Additional Instructions: An ear infection is also called otitis media. An ear infection may be caused by blocked or swollen eustachian tubes. Eustachian tubes connect the middle ear to the back of the nose and throat. They drain fluid from the middle ear. With an ear infection, fluid builds up and is infected by germs. The germs grow easily in fluid trapped behind the eardrum. DISCHARGE INSTRUCTIONS: Call 911 or have someone call 911 for the following: You have a seizure. Return to the emergency department if: You have a fever and a stiff neck. Contact your healthcare provider if: Your ear pain gets worse or does not go away, even after treatment. The outside of your ear is red or swollen. You are vomiting or have diarrhea. You have fluid coming from your ear. You have questions or concerns about your condition or care. Medicines: Acetaminophen decreases pain and fever. It is available without a doctor's order. Ask how much to take and how often to take it. Follow directions. Read the labels of all other medicines you are using to see if they also contain acetaminophen, or ask your doctor or pharmacist. Acetaminophen can cause liver damage if not taken correctly. Do not use more than 4 grams (4,000 milligrams) total of acetaminophen in one day. NSAIDs , such as ibuprofen, help decrease swelling, pain, and fever. This medicine is available with or without a doctor's order. NSAIDs can cause stomach bleeding or kidney problems in certain people. If you take blood thinner medicine, always ask your healthcare provider if NSAIDs are safe for you. Always read the medicine label and follow directions. Ear drops help treat your ear pain. Antibiotics help treat a bacterial infection that caused your ear infection. Take your medicine as directed. Contact your healthcare provider if you think your medicine is not helping or if you have side effects. Tell him or her if you are allergic to any medicine. Keep a list of the medicines, vitamins, and herbs you take. Include the amounts, and when and why you take them. Bring the list or the pill bottles to follow-up visits. Carry your medicine list with you in case of an emergency. Prevent an ear infection: Wash your hands often. Use soap and water. Wash your hands after you use the bathroom, change a child's diapers, or sneeze. Wash your hands before you pr epare or eat food. Handwashing Stay away from people who are ill. Some germs are easily and quickly spread through contact. Patient Language: Citizen [place] Prescriptions: New cefdinir 300 mg capsule 300 mg PO Q12H 7 Days Qty: 14 0RF No Action dapagliflozin propanediol [Farxiga] 5 mg tablet cyanocobalamin (vitamin B-12) [Vitamin B-12] 2,500 mcg Tablet, Sublingual 2,500 mcg SUBLINGUAL DAILY cetirizine [Zyrtec] 10 mg Tablet 10 mg PO DAILY risedronate 5 mg tablet 5 mg PO DAILY azathioprine 50 mg tablet 200 mg PO DAILY glipizide 5 mg tablet 5 mg PO BID Fish Oil Capsule 1,500 mg PO DAILY mesalamine 800 mg tablet,delayed release (DR/EC) 800 mg PO BID Follow-up/Referrals: Jorge Luis,Rajeev Rocha MD [Primary Care Provider] - Time of Disposition: 15:31
[2025-03-16 14:42] VITALS: BP 132/75; PULSE 74; RESP 18; TEMP 36.2; O2SAT 99
== END 2025-03-16 15:34 | disposition home or self-care (01) ==
PROVIDERS: Emergency Provider Nurse Practitioner Family; PCP Internal Medicine
DX: H65.191 Other acute nonsuppurative otitis media, right ear (principal); E11.9 Type 2 diabetes mellitus without complications; Z79.84 Long term (current) use of oral hypoglycemic drugs; K50.90 Crohn's disease, unspecified, without complications
CPT/HCPCS: 99213; G0463